=== PATIENT | female | born 1990 | race Caucasian/White ===

== ENCOUNTER 2019-10-19 17:17 | Emergency (ER) | payer OTHER ==
[2019-10-19 18:24] LABS: HIV (1/2) Antibody/Antigen Non-Reactive (NonReactive); HIV 1/2 INDEX 0.12 S/CO (<1.00); Hep C IgG Ab Non-Reactive (NonReactive)
[2019-10-19 19:34] LABS: Hep B Surf AB Indeterminate (NonReactive)
[2019-10-19 19:35] LABS: HBSAB Concentration 10.62 mIU/mL
== END 2019-10-19 17:30 | disposition home or self-care (01) ==
LOC: ERS 17:17
DX: Z77.21 Contact with and (suspected) exposure to potentially hazardous body fluids (principal); E03.9 Hypothyroidism, unspecified; Z79.899 Other long term (current) drug therapy
CPT/HCPCS: 36415; 86706; 86803; 87389; 99283